=== PATIENT | male | born 2000 | race Hispanic/Latino ===

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

== ENCOUNTER 2019-03-25 21:52 | Emergency (ER) | payer MEDICAID, OTHER | END 2019-03-25 23:07 | disposition home or self-care (01) | LOC: EDH 21:52 | DX: H66.91 Otitis media, unspecified, right ear (principal); Z91.018 Allergy to other foods ==

== ENCOUNTER 2019-04-19 09:56 | Emergency (ER) | payer OTHER ==
[2019-04-19 10:36] LABS: POTASSIUM 3.9 mmol/L (3.5-5.1)
[2019-04-19 10:42] LABS: ALBUMIN 4.2 g/dL (3.5-5.0); BILIRUBIN,TOTAL 0.4 mg/dL (0.2-1.0); TOTAL PROTEIN, SERUM 7.9 g/dL (6.0-8.3)
[2019-04-19 10:55] LABS: BASOPHILS % (AUTO) 1.3 % (0.0-5.0); EOSINOPHILS % (AUTO) 5.4 % (0.0-8.0); HEMATOCRIT 48.5 % (42-54); LYMPHOCYTES % (AUTO) 43.9 % (21.0-51.0); MEAN CORPUSCULAR HEMOGLOBIN 29.6 pg (27.0-33.0); MEAN CORPUSCULAR HGB CONC 34.3 g/dL (32.0-36.0); MEAN CORPUSCULAR VOLUME 86.2 fL (80-100); MONOCYTES % (AUTO) 8.5 % (3.0-13.0); NEUTROPHILS % (AUTO) 40.9 % (40.0-77.0); NUCLEATED RED BLOOD CELLS 0.1 % (0.0-0.19); PLATELET COUNT (AUTO) 186 K/uL (130-400); RED BLOOD CELL COUNT(AUTO) 5.63 MIL/uL (4.50-6.20); RED CELL DISTRIBUTION WIDTH 15.2 % (11.0-15.5); WHITE BLOOD COUNT (AUTO) 3.8 K/uL (4.8-10.8)
[2019-04-19] MEDS ORDERED: ONDANSETRON ODT 4 MG TAB ONE (11:00)
== END 2019-04-19 11:35 | disposition home or self-care (01) ==
LOC: EDH 09:56
DX: A09 Infectious gastroenteritis and colitis, unspecified (principal); M79.10 Myalgia, unspecified site; H92.02 Otalgia, left ear; F41.9 Anxiety disorder, unspecified; Z91.018 Allergy to other foods
CPT/HCPCS: 36415; 80053; 85025; 87804; 87880

== ENCOUNTER 2019-07-21 00:58 | Emergency (ER) | payer MEDICAID ==
[2019-07-21] MEDS ORDERED: DiphenhydrAMINE HCL 50 MG/ML VIAL ONE (01:05)
[2019-07-21] MEDS ORDERED: FAMOTIDINE/PF 20 MG/2 ML VIAL IV ONE (01:05)
[2019-07-21] MEDS ORDERED: METHYLPREDNISOLONE SOD SUCC 125MG/2ML VIAL ONE (01:10)
[2019-07-21 01:33] LABS: BASOPHILS % (AUTO) 0.6 % (0.0-5.0); EOSINOPHILS % (AUTO) 3.9 % (0.0-8.0); LYMPHOCYTES % (AUTO) 43.3 % (21.0-51.0); MEAN CORPUSCULAR HEMOGLOBIN 29.1 pg (27.0-33.0); MEAN CORPUSCULAR HGB CONC 34.6 g/dL (32.0-36.0); MEAN CORPUSCULAR VOLUME 84.1 fL (80-100); MONOCYTES % (AUTO) 8.3 % (3.0-13.0); NEUTROPHILS % (AUTO) 43.5 % (40.0-77.0); PLATELET COUNT (AUTO) 180 K/uL (130-400); RED BLOOD CELL COUNT(AUTO) 4.16 MIL/uL (4.50-6.20); RED CELL DISTRIBUTION WIDTH 13.9 % (11.0-15.5); WHITE BLOOD COUNT (AUTO) 5.4 K/uL (4.8-10.8)
[2019-07-21 01:43] LABS: CREATININE 0.6 mg/dL (0.5-1.5)
[2019-07-21 01:50] LABS: POTASSIUM 2.6 mmol/L (3.5-5.1)
[2019-07-21] MEDS ORDERED: POTASSIUM BICARB/CIT AC 25 MEQ TABLET.EFF ONE (01:54)
[2019-07-21] MEDS ORDERED: MAGNESIUM 2GM PREMIX 50ML 50 ML IV ONE (02:20)
== END 2019-07-21 03:35 | disposition home or self-care (01) ==
LOC: EDH 00:58
DX: T78.49XA Other allergy, initial encounter (principal); E87.6 Hypokalemia; E83.42 Hypomagnesemia; Z91.018 Allergy to other foods; F41.9 Anxiety disorder, unspecified; X58.XXXA Exposure to other specified factors, initial encounter
CPT/HCPCS: 36415; 80048; 83735; 85025; 93005; 96365; 96375; 99285; J1200; J2930; J3475; J3490

== ENCOUNTER 2020-10-01 17:21 | Emergency (ER) | payer MEDICAID ==
[2020-10-01] MEDS ORDERED: MORPHINE SULFATE 2 MG/ML 1ML SYG ONE (18:24)
[2020-10-01] MEDS ORDERED: ONDANSETRON HCL 4 MG/2 ML VIAL ONE (18:24)
[2020-10-01 18:26] LABS: APPEARANCE,URINE Clear (CLEAR); BILIRUBIN,URINE Negative (NEGATIVE); COLOR,URINE Yellow (YELLOW); GLUCOSE, URINE (UA) Negative (NEGATIVE); KETONES,URINE Negative (NEGATIVE); LEUKOCYTE ESTERASE ,URINE Negative (NEGATIVE); NITRATE,URINE Negative (NEGATIVE); OCCULT BLOOD,URINE Negative (NEGATIVE); PROTEIN,URINE Negative (NEGATIVE); UROBILINOGEN,URINE 0.2 mg/dL (0.2-1.0)
[2020-10-01 18:30] LABS: BASOPHILS % (AUTO) 0.7 % (0.0-5.0); EOSINOPHILS % (AUTO) 1.3 % (0.0-8.0); HEMATOCRIT 47.5 % (42-54); LYMPHOCYTES % (AUTO) 29.6 % (21.0-51.0); MEAN CORPUSCULAR HEMOGLOBIN 29.4 pg (27.0-33.0); MEAN CORPUSCULAR HGB CONC 35.2 g/dL (32.0-36.0); MEAN CORPUSCULAR VOLUME 83.6 fL (80-100); MONOCYTES % (AUTO) 8.6 % (3.0-13.0); NEUTROPHILS % (AUTO) 59.6 % (40.0-77.0); PLATELET COUNT (AUTO) 215 K/uL (130-400); RED BLOOD CELL COUNT(AUTO) 5.68 MIL/uL (4.50-6.20); RED CELL DISTRIBUTION WIDTH 14.1 % (11.0-15.5); WHITE BLOOD COUNT (AUTO) 5.4 K/uL (4.8-10.8)
[2020-10-01 18:40] LABS: CARBON DIOXIDE 28 mmol/L (21-32); CHLORIDE 101 mmol/L (101-111); GLOMERULAR FILTR. RATE CALC 101 mL/min (>60); GLUCOSE,RANDOM 97 mg/dL (70-105); POTASSIUM 3.8 mmol/L (3.5-5.1); SODIUM SERUM 137 mmol/L (136-145); UREA NITROGEN, BLOOD 9 mg/dL (7-18)
[2020-10-01 18:44] LABS: ALANINE AMINOTRANSFERASE 36 U/L (12-78); ALBUMIN 4.5 g/dL (3.5-5.0); ASPARTATE AMINOTRANSFERASE 18 U/L (10-37); BILIRUBIN,TOTAL 0.3 mg/dL (0.2-1.0); LIPASE 101 U/L (114-286)
[2020-10-01] MEDS ORDERED: IOHEXOL-350 75 ML VIAL IV ONE (18:54)
[2020-10-01 19:02] LABS: CRP QUANTITATIVE < 2.00 mg/L (0.00-9.0)
[2020-10-01] MEDS ORDERED: LEVOFLOXACIN 500 MG TABLET ONE (20:51)
[2020-10-01] MEDS ORDERED: METRONIDAZOLE 500 MG TABLET ONE (20:51)
== END 2020-10-01 21:02 | disposition home or self-care (01) ==
LOC: EDH 17:21
DX: K52.9 Noninfective gastroenteritis and colitis, unspecified (principal); F41.9 Anxiety disorder, unspecified; Z91.018 Allergy to other foods
CPT/HCPCS: 36415; 74177; 80053; 81003; 83605; 83690; 85025; 86140; 96374; 96375; 99285; J2405; Q9967

== ENCOUNTER 2021-06-09 23:09 | Emergency (ER) | payer MEDICAID ==
[~2021-06-09] VITALS: Ht 162.6 cm; Wt 74.4 kg
[2021-06-10] MEDS ORDERED: PANT40TA PO (00:22)
[2021-06-10] MEDS ORDERED: ONDA4TAB10 PO (00:22)
[2021-06-10] MEDS ORDERED: METO-296 PO (00:22)
[2021-06-10 00:26] VITALS: BP 139/85
[2021-06-10] MEDS ORDERED: FAMOTIDINE 20MG TAB PO ONE (00:30)
[2021-06-10] MEDS ORDERED: ONDANSETRON ODT 4MG TAB SL ONE (00:30)
[2021-06-10] MEDS ORDERED: PROMETHAZINE HCL 25 MG/ML 1ML AMPULE IM ONE (00:30)
[2021-06-10] MEDS ORDERED: PANTOPRAZOLE 40 MG TAB DR PO ONE (00:30)
[2021-06-10] MEDS ORDERED: FAMOTIDINE 20MG TAB ONE (00:39)
[2021-06-10] MEDS ORDERED: PANTOPRAZOLE 40 MG TAB DR ONE (00:40)
[2021-06-10] MEDS ORDERED: ONDANSETRON ODT 4MG TAB ONE (00:40)
== END 2021-06-10 00:53 | disposition home or self-care (01) ==
LOC: EEVIPCON 23:09 → EDH 23:09
DX: A05.9 Bacterial foodborne intoxication, unspecified (principal); R10.13 Epigastric pain; R11.2 Nausea with vomiting, unspecified; Z79.899 Other long term (current) drug therapy; Z91.018 Allergy to other foods
CPT/HCPCS: 96372; 99284; J2550

== ENCOUNTER 2022-03-22 20:48 | Emergency (ER) | payer MEDICAID ==
[~2022-03-22] VITALS: Ht 162.6 cm; Wt 69.9 kg
[~2022-03-22 20:48] MED LIST: METO-296 PO; ONDA4TAB10 PO; PANT40TA PO
[2022-03-22] MEDS ORDERED: IBUP-2070 PO (22:10)
[2022-03-22] MEDS ORDERED: GUAIF10 PO (22:10)
[2022-03-22 22:34] VITALS: BP 122/68
== END 2022-03-22 22:40 | disposition home or self-care (01) ==
LOC: EDH 20:48
DX: J10.1 Influenza due to other identified influenza virus with other respiratory manifestations (principal); Z20.822 Contact with and (suspected) exposure to COVID-19; Z91.018 Allergy to other foods; Z79.899 Other long term (current) drug therapy
CPT/HCPCS: 99283; 87635; 87880; 87804 ×2; C9803

== ENCOUNTER 2022-12-11 12:33 | Emergency (ER) | payer MEDICAID, OTHER ==
[~2022-12-11] VITALS: Ht 157.5 cm; Wt 63.5 kg
[~2022-12-11 12:33] MED LIST changes: +GUAIF10 PO; +IBUP-2070 PO
[2022-12-11 14:12] LABS: CARBON DIOXIDE 25 mmol/L (21-32); CHLORIDE 103 mmol/L (101-111); CREATININE 0.9 mg/dL (0.5-1.5); GLOMERULAR FILTR. RATE CALC 123 mL/min (>90); GLUCOSE,RANDOM 101 mg/dL (70-105); POTASSIUM 3.6 mmol/L (3.5-5.1); SODIUM SERUM 141 mmol/L (136-145); UREA NITROGEN, BLOOD 10 mg/dL (7-18)
[2022-12-11 14:20] LABS: ALANINE AMINOTRANSFERASE 42 U/L (12-78); ALBUMIN 4.6 g/dL (3.5-5.0); ASPARTATE AMINOTRANSFERASE 26 U/L (10-37); TOTAL PROTEIN, SERUM 8.5 g/dL (6.0-8.3)
[2022-12-11 14:28] LABS: ACETAMINOPHEN < 10 mcg/mL (10-29); SALICYLATE < 2.8 mg/dL (2.8-20.0)
[2022-12-11 15:15] LABS: BASOPHILS % (AUTO) 0.7 % (0.0-5.0); EOSINOPHILS % (AUTO) 0.5 % (0.0-8.0); HEMATOCRIT 46.7 % (42-54); LYMPHOCYTES % (AUTO) 37.6 % (21.0-51.0); MEAN CORPUSCULAR HEMOGLOBIN 29.6 pg (27.0-33.0); MEAN CORPUSCULAR HGB CONC 34.3 g/dL (32.0-36.0); MEAN CORPUSCULAR VOLUME 86.3 fL (79-99); MONOCYTES % (AUTO) 7.4 % (3.0-13.0); NEUTROPHILS % (AUTO) 53.6 % (40.0-77.0); PLATELET COUNT (AUTO) 299 K/uL (130-400); RED BLOOD CELL COUNT(AUTO) 5.41 MIL/uL (4.50-6.20); RED CELL DISTRIBUTION WIDTH 13.8 % (11.0-15.5); WHITE BLOOD COUNT (AUTO) 5.7 K/uL (4.8-10.8)
[2022-12-11 15:53] LABS: APPEARANCE,URINE CLEAR (CLEAR); BILIRUBIN,URINE NEGATIVE (NEGATIVE); COLOR,URINE YELLOW (YELLOW); GLUCOSE, URINE (UA) NEGATIVE (NEGATIVE); KETONES,URINE NEGATIVE (NEGATIVE); LEUKOCYTE ESTERASE ,URINE NEGATIVE Leu/uL (NEGATIVE); NITRATE,URINE NEGATIVE (NEGATIVE); OCCULT BLOOD,URINE SMALL (NEGATIVE); PH,URINE 5.5 (5.0-8.0); PROTEIN,URINE 10 mg/dL (NEGATIVE); UROBILINOGEN,URINE 0.2 mg/dL (0.2-1.0)
[2022-12-11 15:54] LABS: MUCUS,URINE FEW LPF (None Seen); RBC,URINE 0-1 /HPF (0-1); WBC,URINE 0-1 /HPF (0-1)
[2022-12-11 16:02] LABS: AMPHET/METH SCREEN,URINE NEGATIVE (NEGATIVE); BARBITURATE SCREEN, URINE NEGATIVE (NEGATIVE); BENZODIAZEPINES SCREEN,URINE NEGATIVE (NEGATIVE); CANNABINOID SCREEN,URINE NEGATIVE (NEGATIVE); COCAINE SCREEN,URINE POSITIVE (NEGATIVE); OPIATE SCREEN,URINE NEGATIVE (NEGATIVE); PHENCYCLIDINE SCREEN,URINE NEGATIVE (NEGATIVE)
[2022-12-11 19:58] VITALS: BP 126/72
== END 2022-12-11 20:33 | disposition home or self-care (01) ==
LOC: EDH 12:33 → EEVIPCON 12:33 → EDH 20:33
DX: F10.10 Alcohol abuse, uncomplicated (principal); F14.10 Cocaine abuse, uncomplicated; F41.9 Anxiety disorder, unspecified; Z20.822 Contact with and (suspected) exposure to COVID-19; Z79.899 Other long term (current) drug therapy; Z91.018 Allergy to other foods
CPT/HCPCS: 99285; 87635; 80053; 80305; 85025; 36415; 81001; G0481; C9803

== ENCOUNTER 2023-02-12 05:59 | Emergency (ER) | payer OTHER ==
[2023-02-12] MEDS ORDERED: HYDROXYZINE 25 MG TABLET ONE (06:25)
== END 2023-02-12 07:17 | disposition home or self-care (01) ==
LOC: EDH 05:59
DX: R68.89 Other general symptoms and signs (principal); Z53.21 Procedure and treatment not carried out due to patient leaving prior to being seen by health care provider

== ENCOUNTER 2023-03-19 15:38 | Emergency (ER) | payer OTHER ==
[~2023-03-19] VITALS: Ht 162.6 cm; Wt 63.5 kg
[2023-03-19 16:29] LABS: BASOPHILS # (AUTO) 0.03 K/uL (0.00-0.20); BASOPHILS % (AUTO) 0.6 % (0.0-5.0); EOSINOPHILS # (AUTO) 0.01 K/uL (0.00-0.70); EOSINOPHILS % (AUTO) 0.2 % (0.0-8.0); HEMATOCRIT 46.7 % (42-54); IMMATURE GRANULOCYTE ABSOLUTE 0.01 K/uL (0-1); LYMPHOCYTES # (AUTO) 1.8 K/uL (1.0-4.8); LYMPHOCYTES % (AUTO) 37.7 % (21.0-51.0); MEAN CORPUSCULAR HEMOGLOBIN 30.2 pg (27.0-33.0); MEAN CORPUSCULAR HGB CONC 35.3 g/dL (32.0-36.0); MEAN CORPUSCULAR VOLUME 85.4 fL (79-99); MONOCYTES # (AUTO) 0.3 K/uL (0.1-1.0); NEUTROPHILS # (AUTO) 2.6 K/uL (1.8-7.7); NEUTROPHILS % (AUTO) 55.3 % (40.0-77.0); PLATELET COUNT (AUTO) 240 K/uL (130-400); RED BLOOD CELL COUNT(AUTO) 5.47 MIL/uL (4.50-6.20); RED CELL DISTRIBUTION WIDTH 13.4 % (11.0-15.5); WHITE BLOOD COUNT (AUTO) 4.7 K/uL (4.8-10.8)
[2023-03-19 16:35] LABS: APPEARANCE,URINE CLEAR (CLEAR); BILIRUBIN,URINE NEGATIVE (NEGATIVE); GLUCOSE, URINE (UA) NEGATIVE (NEGATIVE); KETONES,URINE NEGATIVE (NEGATIVE); LEUKOCYTE ESTERASE ,URINE NEGATIVE Leu/uL (NEGATIVE); NITRATE,URINE NEGATIVE (NEGATIVE); PH,URINE 5.5 (5.0-8.0); PROTEIN,URINE NEGATIVE (NEGATIVE); UROBILINOGEN,URINE 0.2 mg/dL (0.2-1.0)
[2023-03-19 16:36] LABS: ADD UA MICROSCOPIC YES; COLOR,URINE LIGHT-YELLOW (YELLOW)
[2023-03-19 16:38] LABS: CARBON DIOXIDE 26 mmol/L (21-32); CHLORIDE 101 mmol/L (101-111); GLOMERULAR FILTR. RATE CALC 108 mL/min (>90); GLUCOSE,RANDOM 106 mg/dL (70-105); MUCUS,URINE RARE LPF (None Seen); POTASSIUM 3.2 mmol/L (3.5-5.1); RBC,URINE 0-1 /HPF (0-1); SODIUM SERUM 140 mmol/L (136-145); UREA NITROGEN, BLOOD 5 mg/dL (7-18); WBC,URINE 0-1 /HPF (0-1)
[2023-03-19 16:42] LABS: AMPHET/METH SCREEN,URINE NEGATIVE (NEGATIVE); BARBITURATE SCREEN, URINE NEGATIVE (NEGATIVE); BENZODIAZEPINES SCREEN,URINE NEGATIVE (NEGATIVE); CANNABINOID SCREEN,URINE NEGATIVE (NEGATIVE); COCAINE SCREEN,URINE POSITIVE (NEGATIVE); OPIATE SCREEN,URINE NEGATIVE (NEGATIVE); PHENCYCLIDINE SCREEN,URINE NEGATIVE (NEGATIVE); SARS-CoV-2, RNA, NAAT NEGATIVE SARS CoV-2 (NEGATIVE)
[2023-03-19 16:47] LABS: ALANINE AMINOTRANSFERASE 39 U/L (12-78); ALBUMIN 4.7 g/dL (3.5-5.0); ALCOHOL, BLOOD 242 mg/dL (0-10); ASPARTATE AMINOTRANSFERASE 28 U/L (10-37); BILIRUBIN,TOTAL 0.4 mg/dL (0.2-1.0); SALICYLATE < 2.8 mg/dL (2.8-20.0); TOTAL PROTEIN, SERUM 8.5 g/dL (6.0-8.3)
[2023-03-19 16:48] LABS: ACETAMINOPHEN < 1 mcg/mL (10-29)
[2023-03-19] MEDS ORDERED: DiphenhydrAMINE HCL 50 MG/ML VIAL IM ONE (22:30)
[2023-03-19] MEDS ORDERED: EPINEPHRINE PF 1MG (1:1,000) 1 MG/ML AMP IM ONE (22:30)
[2023-03-19] MEDS ORDERED: SOLU-MEDROL 125MG VIAL IM ONE (22:30)
[2023-03-20 05:35] VITALS: BP 126/78; PULSE 102; RESP 16; O2SAT 99
== END 2023-03-20 08:05 ==
LOC: EDH 15:38
DX: R45.851 Suicidal ideations (principal); F32.A Depression, unspecified; E10.9 Type 1 diabetes mellitus without complications; Z20.822 Contact with and (suspected) exposure to COVID-19; Z79.899 Other long term (current) drug therapy; Z98.890 Other specified postprocedural states; Z91.018 Allergy to other foods
CPT/HCPCS: 99285; 87635; 80053; 80305; 85025; 36415 ×2; 96372 ×3; 93005; 81001; C9803; J1200; J2930; J0171; G0481

== ENCOUNTER 2023-04-28 12:20 | Emergency (ER) | payer OTHER ==
[~2023-04-28] VITALS: Ht 162.6 cm; Wt 68.0 kg
[2023-04-28 12:24] VITALS: BP 130/66; PULSE 93; RESP 18
[2023-04-28] MEDS ORDERED: KETOROLAC 30MG VIAL (30MG/ML) IM ONE (13:00)
[2023-04-28] MEDS ORDERED: FAMOTIDINE 20MG TAB PO ONE (13:00)
[2023-04-28] MEDS ORDERED: NAPR-1180 PO (13:06)
[2023-04-28] MEDS ORDERED: CYCL-309 PO (13:06)
== END 2023-04-28 13:27 | disposition home or self-care (01) ==
LOC: EDH 12:20
DX: M62.838 Other muscle spasm (principal); E10.9 Type 1 diabetes mellitus without complications; F32.A Depression, unspecified; Z79.899 Other long term (current) drug therapy; Z98.890 Other specified postprocedural states; Z04.1 Encounter for examination and observation following transport accident
CPT/HCPCS: 99283; 96372; J1885

== ENCOUNTER 2023-06-06 19:48 | Inpatient (IN) | payer OTHER ==
[~2023-06-06] VITALS: Ht 162.6 cm; Wt 69.3 kg
[~2023-06-06 19:48] MED LIST changes: +CYCL-309 PO; +NAPR-1180 PO
[2023-06-07] VITALS (27 sets, daily range): BP systolic 94–130; BP diastolic 49–85; PULSE 64–96; RESP 15–20; O2SAT 98–99
[2023-06-07] MEDS ORDERED: ZOSYN 3.375GM+NS 50ML 50 ML IVPB STA (00:19)
[2023-06-07] MEDS ORDERED: 0.9%NACL 1000ML 1,776 ML IV ONE (00:30)
[2023-06-07] MEDS ORDERED: HYDROCODONE/ACETAMINOPHEN 5/325 MG TAB PO ONE (00:30)
[2023-06-07] MEDS ORDERED: KETOROLAC 30MG VIAL (30MG/ML) IVP ONE (00:30)
[2023-06-07] MEDS ORDERED: VANCOMYCIN 1G/250ML KIT 250 ML IV ONE (00:30)
[2023-06-07 01:10] LABS: BASOPHILS # (AUTO) 0.04 K/uL (0.00-0.20); BASOPHILS % (AUTO) 0.3 % (0.0-5.0); EOSINOPHILS # (AUTO) 0.03 K/uL (0.00-0.70); EOSINOPHILS % (AUTO) 0.2 % (0.0-8.0); IMMATURE GRANULOCYTE ABSOLUTE 0.07 K/uL (0-1); LYMPHOCYTES # (AUTO) 1.6 K/uL (1.0-4.8); LYMPHOCYTES % (AUTO) 11.7 % (21.0-51.0); MEAN CORPUSCULAR HEMOGLOBIN 30.2 pg (27.0-33.0); MEAN CORPUSCULAR VOLUME 86.4 fL (79-99); MONOCYTES # (AUTO) 1.2 K/uL (0.1-1.0); MONOCYTES % (AUTO) 8.7 % (3.0-13.0); NEUTROPHILS # (AUTO) 10.5 K/uL (1.8-7.7); NEUTROPHILS % (AUTO) 78.6 % (40.0-77.0); PLATELET COUNT (AUTO) 270 K/uL (130-400); RED BLOOD CELL COUNT(AUTO) 4.86 MIL/uL (4.50-6.20); RED CELL DISTRIBUTION WIDTH 13.5 % (11.0-15.5); WHITE BLOOD COUNT (AUTO) 13.4 K/uL (4.8-10.8)
[2023-06-07 01:24] LABS: CREATININE 1.1 mg/dL (0.5-1.5); POTASSIUM 3.1 mmol/L (3.5-5.1)
[2023-06-07 01:29] LABS: ALBUMIN 3.8 g/dL (3.5-5.0); BILIRUBIN,TOTAL 0.7 mg/dL (0.2-1.0); TOTAL PROTEIN, SERUM 8.2 g/dL (6.0-8.3)
[2023-06-07] MEDS ORDERED: ONDANSETRON 4MG INJ ONE ×4 (01:40→15:44)
[2023-06-07] MEDS ORDERED: ONDANSETRON 4MG INJ IV PRN (03:30)
[2023-06-07] MEDS ORDERED: ACETAMINOPHEN 325 MG TAB PO PRN ×2 (03:30)
[2023-06-07] MEDS ORDERED: VANCOMYCIN PROTOCOL PER PHARMACY IV SCH (04:00)
[2023-06-07] MEDS ORDERED: 0.9%NACL 50ML IV SCH (04:00)
[2023-06-07 04:49] LABS: BASOPHILS # (AUTO) 0.04 K/uL (0.00-0.20); BASOPHILS % (AUTO) 0.4 % (0.0-5.0); EOSINOPHILS # (AUTO) 0.15 K/uL (0.00-0.70); EOSINOPHILS % (AUTO) 1.4 % (0.0-8.0); HEMATOCRIT 38.7 % (42-54); IMMATURE GRANULOCYTE ABSOLUTE 0.07 K/uL (0-1); LYMPHOCYTES % (AUTO) 19.5 % (21.0-51.0); MEAN CORPUSCULAR HEMOGLOBIN 29.7 pg (27.0-33.0); MEAN CORPUSCULAR HGB CONC 33.9 g/dL (32.0-36.0); MEAN CORPUSCULAR VOLUME 87.8 fL (79-99); MONOCYTES % (AUTO) 9.8 % (3.0-13.0); NEUTROPHILS # (AUTO) 7.1 K/uL (1.8-7.7); NEUTROPHILS % (AUTO) 68.2 % (40.0-77.0); PLATELET COUNT (AUTO) 221 K/uL (130-400); RED BLOOD CELL COUNT(AUTO) 4.41 MIL/uL (4.50-6.20); RED CELL DISTRIBUTION WIDTH 13.6 % (11.0-15.5); WHITE BLOOD COUNT (AUTO) 10.4 K/uL (4.8-10.8)
[2023-06-07 05:14] LABS: ALBUMIN 3.1 g/dL (3.5-5.0); BILIRUBIN,TOTAL 0.7 mg/dL (0.2-1.0); MAGNESIUM 1.8 mg/dL (1.80-2.40); POTASSIUM 3.2 mmol/L (3.5-5.1); TOTAL PROTEIN, SERUM 6.6 g/dL (6.0-8.3)
[2023-06-07] MEDS: 0.9%NACL 1000ML 1,000 ML IV SCH ×2 (05:34→17:20)
[2023-06-07] MEDS: ZOSYN 3.375GM +NS 50ML IVPB SCH ×3 (05:34→19:46)
[2023-06-07 06:01] LABS: ERYTHROCYTE SEDIMENTATION RATE 18 MM/HR (0-15)
[2023-06-07] MEDS: FAMOTIDINE 20MG TAB PO SCH ×2 (09:00→19:46)
[2023-06-07] MEDS: KETOROLAC 15MG/ML VIAL (15MG/ML) IM PRN ×2 (10:16→21:42)
[2023-06-07] MEDS ORDERED: POTASSIUM CHLORIDE 20MEQ/100ML 100 ML IV PRN (11:00)
[2023-06-07] MEDS ORDERED: MAGNESIUM 2GM PREMIX 50ML 50 ML IV PRN (11:00)
[2023-06-07] MEDS ORDERED: POTASSIUM CHLORIDE 10% ELIXIR 20 MEQ/15 ML UDCUP PO PRN (11:00)
[2023-06-07] MEDS ORDERED: LACTATED RINGERS 1000ML 1,000 ML IV ONE (13:50)
[2023-06-07] MEDS ORDERED: VANCOMYCIN 1.5 GM/250 ML BAG 250 ML IV ONE (14:00)
[2023-06-07] MEDS ORDERED: FAMOTIDINE 20MG VIAL IV ONE (14:14)
[2023-06-07] MEDS ORDERED: LIDOCAINE PF 100MG/5ML (2%) SYRINGE 5ML ONE (14:16)
[2023-06-07] MEDS ORDERED: PROPOFOL 10 MG/ML 20ML VIAL IV ONE (14:17)
[2023-06-07] MEDS ORDERED: FENTANYL CITRATE PF 50 MCG/1 ML 2ML VIAL ONE (14:17)
[2023-06-07] MEDS ORDERED: MIDAZOLAM HCL 1 MG/ML 2ML VIAL ONE (14:17)
[2023-06-07] MEDS ORDERED: PHENYLEPHRINE HCL 10 MG/ML 1ML VIAL IV ONE (14:37)
[2023-06-07] MEDS ORDERED: MEPERIDINE-PF 25 MG/ML SYG ONE ×2 (15:08→15:44)
[2023-06-07] MEDS: KCL 20 MEQ ERTAB PO PRN ×3 (16:48→21:41)
[2023-06-07] MEDS: MORPHINE 2 MG SYG IVP PRN (18:41)
[2023-06-08] VITALS (8 sets, daily range): BP systolic 107–138; BP diastolic 58–84; PULSE 72–97; RESP 16–18; TEMP 99.5; O2SAT 97–98
[2023-06-08] MEDS ORDERED: VANCOMYCIN 1G/250ML KIT 250 ML IV SCH (02:00)
[2023-06-08] MEDS: ZOSYN 3.375GM +NS 50ML IVPB SCH ×3 (03:55→20:12)
[2023-06-08 04:55] LABS: BASOPHILS # (AUTO) 0.03 K/uL (0.00-0.20); BASOPHILS % (AUTO) 0.3 % (0.0-5.0); EOSINOPHILS # (AUTO) 0.18 K/uL (0.00-0.70); EOSINOPHILS % (AUTO) 1.8 % (0.0-8.0); HEMATOCRIT 35.9 % (42-54); IMMATURE GRANULOCYTE ABSOLUTE 0.04 K/uL (0-1); LYMPHOCYTES # (AUTO) 1.1 K/uL (1.0-4.8); LYMPHOCYTES % (AUTO) 11.2 % (21.0-51.0); MEAN CORPUSCULAR HEMOGLOBIN 29.9 pg (27.0-33.0); MEAN CORPUSCULAR HGB CONC 34.5 g/dL (32.0-36.0); MEAN CORPUSCULAR VOLUME 86.5 fL (79-99); MONOCYTES # (AUTO) 0.7 K/uL (0.1-1.0); MONOCYTES % (AUTO) 6.8 % (3.0-13.0); NEUTROPHILS # (AUTO) 7.8 K/uL (1.8-7.7); NEUTROPHILS % (AUTO) 79.5 % (40.0-77.0); PLATELET COUNT (AUTO) 231 K/uL (130-400); RED BLOOD CELL COUNT(AUTO) 4.15 MIL/uL (4.50-6.20); RED CELL DISTRIBUTION WIDTH 13.9 % (11.0-15.5); WHITE BLOOD COUNT (AUTO) 9.8 K/uL (4.8-10.8)
[2023-06-08 05:10] LABS: ALBUMIN 2.8 g/dL (3.5-5.0); BILIRUBIN,TOTAL 0.4 mg/dL (0.2-1.0); MAGNESIUM 1.9 mg/dL (1.80-2.40); POTASSIUM 3.7 mmol/L (3.5-5.1); TOTAL PROTEIN, SERUM 6.5 g/dL (6.0-8.3)
[2023-06-08] MEDS: KCL 20 MEQ ERTAB PO PRN (05:22)
[2023-06-08 05:58] LABS: ERYTHROCYTE SEDIMENTATION RATE 30 MM/HR (0-15)
[2023-06-08] MEDS: 0.9%NACL 1000ML 1,000 ML IV SCH ×2 (06:04→20:13)
[2023-06-08] MEDS: FAMOTIDINE 20MG TAB PO SCH ×2 (08:42→20:12)
[2023-06-08] MEDS: KETOROLAC 15MG/ML VIAL (15MG/ML) IM PRN ×2 (09:36→19:53)
[2023-06-08] MEDS ORDERED: LACTULOSE 20 GM/30 ML UDCUP ONE (10:26)
[2023-06-08] MEDS ORDERED: LACTULOSE 20 GM/30 ML UDCUP PO PRN (10:30)
[2023-06-08] MEDS ORDERED: ACETAMINOPHEN 500 MG TABLET PO PRN (12:30)
[2023-06-08] MEDS: MORPHINE 2 MG SYG IVP PRN (14:45)
[2023-06-08] MEDS: VANCOMYCIN 1G/250ML KIT 250 ML IV SCH ×2 (15:57→23:19)
[2023-06-09] VITALS: BP 105/84; PULSE 77; RESP 18
[2023-06-09] MEDS: ZOSYN 3.375GM +NS 50ML IVPB SCH ×2 (03:45→12:41)
[2023-06-09 04:00] VITALS: BP 116/67; PULSE 68; RESP 18
[2023-06-09 04:10] LABS: BASOPHILS # (AUTO) 0.04 K/uL (0.00-0.20); BASOPHILS % (AUTO) 0.5 % (0.0-5.0); EOSINOPHILS # (AUTO) 0.29 K/uL (0.00-0.70); EOSINOPHILS % (AUTO) 3.7 % (0.0-8.0); HEMATOCRIT 38.7 % (42-54); IMMATURE GRANULOCYTE ABSOLUTE 0.02 K/uL (0-1); LYMPHOCYTES # (AUTO) 1.9 K/uL (1.0-4.8); LYMPHOCYTES % (AUTO) 24.4 % (21.0-51.0); MEAN CORPUSCULAR HEMOGLOBIN 29.5 pg (27.0-33.0); MEAN CORPUSCULAR HGB CONC 33.1 g/dL (32.0-36.0); MEAN CORPUSCULAR VOLUME 89.2 fL (79-99); MONOCYTES # (AUTO) 0.7 K/uL (0.1-1.0); MONOCYTES % (AUTO) 8.6 % (3.0-13.0); NEUTROPHILS % (AUTO) 62.5 % (40.0-77.0); PLATELET COUNT (AUTO) 234 K/uL (130-400); RED BLOOD CELL COUNT(AUTO) 4.34 MIL/uL (4.50-6.20); RED CELL DISTRIBUTION WIDTH 13.8 % (11.0-15.5); WHITE BLOOD COUNT (AUTO) 7.9 K/uL (4.8-10.8)
[2023-06-09 04:24] LABS: ALBUMIN 2.7 g/dL (3.5-5.0); BILIRUBIN,TOTAL 0.3 mg/dL (0.2-1.0); POTASSIUM 3.7 mmol/L (3.5-5.1); TOTAL PROTEIN, SERUM 6.8 g/dL (6.0-8.3)
[2023-06-09] MEDS: VANCOMYCIN 1G/250ML KIT 250 ML IV SCH (06:28)
[2023-06-09 07:56] VITALS: BP 114/61; PULSE 67; RESP 14
[2023-06-09 08:00] VITALS: O2SAT 97
[2023-06-09] MEDS: FAMOTIDINE 20MG TAB PO SCH (08:18)
[2023-06-09] MEDS: 0.9%NACL 1000ML 1,000 ML IV SCH (08:18)
[2023-06-09 11:47] VITALS: BP 160/94; PULSE 69; RESP 16
[2023-06-09] MEDS: MORPHINE 2 MG SYG IVP PRN (12:59)
[2023-06-09] MEDS ORDERED: AMOX500T2 PO (14:12)
== END 2023-06-09 15:35 | disposition home or self-care (01) | DRG 580 ==
LOC: EDH 19:48 → EDHIP 19:49 → 4CH 06-07 04:00
PROVIDERS: ADMIT Hospitalist; ATTEND Hospitalist
PROC: 0JBJ0ZZ Excision of Right Hand Subcutaneous Tissue and Fascia, Open Approach (ICD-10-PCS; principal; 2023-06-07 14:16)
DX: L03.113 Cellulitis of right upper limb (principal); E87.1 Hypo-osmolality and hyponatremia; L02.511 Cutaneous abscess of right hand; E87.6 Hypokalemia; F43.10 Post-traumatic stress disorder, unspecified; S60.511A Abrasion of right hand, initial encounter; S61.411A Laceration without foreign body of right hand, initial encounter; W01.0XXA Fall on same level from slipping, tripping and stumbling without subsequent striking against object, initial encounter; Y93.89 Activity, other specified; Y92.89 Other specified places as the place of occurrence of the external cause; Y99.0 Civilian activity done for income or pay; Z91.018 Allergy to other foods
CPT/HCPCS: 36415; 73130; 80053; 80202; 82948; 83605; 83735; 84145; 85025; 85651; 86140; 87040; 87070; 87076; 87205; A6266; G0378; J1885; J2001; J2175; J2250; J2270; J2371; J2405; J2543; J2704; J3010; J3370; J3475; J3490; J7120; A4216; A4222; A4223; A4649; A6223; G8980-CH; G8983-CH

== ENCOUNTER 2023-08-28 10:07 | Emergency (ER) | payer OTHER ==
[~2023-08-28 10:07] MED LIST changes: +AMOX500T2 PO; -CYCL-309 PO; -GUAIF10 PO; -IBUP-2070 PO; -METO-296 PO; -NAPR-1180 PO; -ONDA4TAB10 PO; -PANT40TA PO
[2023-08-28] MEDS ORDERED: KETOROLAC 60 MG VIAL (30MG/ML) IM ONE (11:00)
== END 2023-08-28 11:33 | disposition left against medical advice (07) ==
LOC: EDH 10:07
DX: R07.89 Other chest pain (principal); Z98.890 Other specified postprocedural states; Z88.8 Allergy status to other drugs, medicaments and biological substances
CPT/HCPCS: 71101

== ENCOUNTER 2024-03-25 07:57 | Emergency (ER) | payer SELFPAY ==
[~2024-03-25] VITALS: Ht 162.6 cm; Wt 68.0 kg
[2024-03-25 07:58] VITALS: BP 140/85; PULSE 111; RESP 22; TEMP 98
[2024-03-25 08:30] LABS: BASOPHILS # (AUTO) 0.03 K/uL (0.00-0.20); BASOPHILS % (AUTO) 0.8 % (0.0-5.0); EOSINOPHILS # (AUTO) 0.03 K/uL (0.00-0.70); EOSINOPHILS % (AUTO) 0.8 % (0.0-8.0); HEMATOCRIT 45.6 % (42-54); IMMATURE GRANULOCYTE ABSOLUTE 0.01 K/uL (0-1); LYMPHOCYTES # (AUTO) 1.4 K/uL (1.0-4.8); LYMPHOCYTES % (AUTO) 37.3 % (21.0-51.0); MEAN CORPUSCULAR HEMOGLOBIN 30.3 pg (27.0-33.0); MEAN CORPUSCULAR HGB CONC 34.6 g/dL (32.0-36.0); MEAN CORPUSCULAR VOLUME 87.5 fL (79-99); MONOCYTES # (AUTO) 0.3 K/uL (0.1-1.0); MONOCYTES % (AUTO) 8.7 % (3.0-13.0); NEUTROPHILS # (AUTO) 1.9 K/uL (1.8-7.7); NEUTROPHILS % (AUTO) 52.1 % (40.0-77.0); PLATELET COUNT (AUTO) 261 K/uL (130-400); RED BLOOD CELL COUNT(AUTO) 5.21 MIL/uL (4.50-6.20); RED CELL DISTRIBUTION WIDTH 13.3 % (11.0-15.5); WHITE BLOOD COUNT (AUTO) 3.7 K/uL (4.8-10.8)
[2024-03-25 08:43] LABS: POTASSIUM 3.1 mmol/L (3.5-5.1)
[2024-03-25 08:50] LABS: AMPHET/METH SCREEN,URINE POSITIVE (NEGATIVE); BARBITURATE SCREEN, URINE NEGATIVE (NEGATIVE); BENZODIAZEPINES SCREEN,URINE NEGATIVE (NEGATIVE); CANNABINOID SCREEN,URINE NEGATIVE (NEGATIVE); COCAINE SCREEN,URINE NEGATIVE (NEGATIVE); OPIATE SCREEN,URINE NEGATIVE (NEGATIVE); PHENCYCLIDINE SCREEN,URINE NEGATIVE (NEGATIVE)
[2024-03-25 09:03] LABS: SARS-CoV-2, RNA, NAAT NEGATIVE SARS CoV-2 (NEGATIVE)
[2024-03-25 09:07] LABS: INFLUENZA TYPE A Negative For Type A (NEGATIVE); INFLUENZA TYPE B Negative For Type B (NEGATIVE)
[2024-03-25 09:12] LABS: APPEARANCE,URINE CLEAR (CLEAR); BILIRUBIN,URINE NEGATIVE (NEGATIVE); COLOR,URINE YELLOW (YELLOW); GLUCOSE, URINE (UA) 50 mg/dL (NEGATIVE); KETONES,URINE NEGATIVE (NEGATIVE); LEUKOCYTE ESTERASE ,URINE NEGATIVE Leu/uL (NEGATIVE); NITRATE,URINE NEGATIVE (NEGATIVE); OCCULT BLOOD,URINE SMALL (NEGATIVE); PROTEIN,URINE 20 mg/dL (NEGATIVE); UROBILINOGEN,URINE 0.2 mg/dL (0.2-1.0)
[2024-03-25 09:28] LABS: ADD UA MICROSCOPIC YES
[2024-03-25 09:37] LABS: MUCUS,URINE RARE LPF (None Seen); WBC,URINE 0-1 /HPF (0-1)
== END 2024-03-25 08:45 | disposition left against medical advice (07) ==
LOC: EDH 07:57 → EEVIPCON 07:57 → EDH 08:45
DX: R55 Syncope and collapse (principal); Z20.822 Contact with and (suspected) exposure to COVID-19; Z79.899 Other long term (current) drug therapy; Z91.018 Allergy to other foods; Z98.890 Other specified postprocedural states
CPT/HCPCS: 36415; 71045; 80048; 80305; 81001; 84484; 85025; 85378; 87635; 87804; 93005

== ENCOUNTER 2025-02-20 22:13 | Emergency (ER) | payer SELFPAY ==
[~2025-02-20] VITALS: Ht 162.6 cm; Wt 63.5 kg
--- NOTE | 2025-02-20 22:18 | NUR ---
UA CUP PROVIDED
--- NOTE | 2025-02-20 23:31 | HMCIMG ---
EXAM: CR Abdomen, 1 view CLINICAL HISTORY: Difficult bowel movements. Left lower quadrant pain. COMPARISON: None provided. FINDINGS: Nonobstructed nonspecific bowel gas pattern. A component of moderate constipation is present in the colon. No free air is evident. No abnormal calcification. No aggressive appearing osseous lesion. IMPRESSION: No acute process. A component of moderate constipation is present in the colon. /[place]
[2025-02-21 00:14] LABS: APPEARANCE,URINE CLOUDY (CLEAR); GLUCOSE, URINE (UA) NEGATIVE (NEGATIVE); LEUKOCYTE ESTERASE ,URINE NEGATIVE Leu/uL (NEGATIVE); NITRATE,URINE NEGATIVE (NEGATIVE); OCCULT BLOOD,URINE NEGATIVE (NEGATIVE)
[2025-02-21 00:16] LABS: ADD UA MICROSCOPIC YES
[2025-02-21 00:22] LABS: CREATININE 0.9 mg/dL (0.5-1.3); GLOMERULAR FILTR. RATE CALC 122.0 mL/min (>90); GLUCOSE,RANDOM 121.0 mg/dL (70-105); SODIUM SERUM 139.0 mmol/L (136-145); UREA NITROGEN, BLOOD 16.0 mg/dL (7-18)
[2025-02-21 00:27] LABS: ASPARTATE AMINOTRANSFERASE 9.0 U/L (10-37); TOTAL PROTEIN, SERUM 7.0 g/dL (6.0-8.3)
[2025-02-21 00:35] LABS: IMMATURE GRANULOCYTE ABSOLUTE 0.01 K/uL (0-1); NUCLEATED RED BLOOD CELLS 0.0 % (0.0-0.19); PLATELET COUNT (AUTO) 223 K/uL (130-400); RED BLOOD CELL COUNT(AUTO) 5.04 MIL/uL (4.50-6.20); RED CELL DISTRIBUTION WIDTH 13.4 % (11.0-15.5); WHITE BLOOD COUNT (AUTO) 5.4 K/uL (4.8-10.8)
[2025-02-21] MEDS ORDERED: LACT-441 PO (00:47)
--- NOTE | 2025-02-21 00:47 | ERN ---
ED Note History of Present Illness Stated Complaint: LEFT LOWER QUADRANT PAIN Chief Complaint: Abdominal Pain Time Seen by MD: 22:16 Time Seen by Midlevel: 22:16 Dictation: The patient is a 24-year-old male with no significant past medical history who presents to the emergency department with complaints of left lower quadrant pain associated with constipation for the last three days. Patient denies any fevers, denies any vomiting. Allergies: Coded Allergies: banana (Unverified Allergy, Unknown, 04/19/19) Home Meds Active Scripts Amoxicillin (Amoxicillin) 500 Mg Tablet, 500 MG PO TID for 10 Days, #30 TAB 0 Refills Prov:PRABHA SMITH Joseph [employer] 06/09/23 Past Medical History Past Medical History: Other Additional Past Medical Hx: PTSD Surgical History: Other Surgical History Other: NECK BIOPSY RN Note Reviewed/Agreed w/PFSH: Yes Review of System Dictation Constitutional: Negative for fever,chills, and weight loss Eyes: Negative for injury, pain,redness, and discharge ENT: Negative for injury,pain or swelling Cardiovascular: Negative for chest pain, palpitations, and edema Respiratory: Negative for shortness of breath, cough, and wheezing, Abdomen/GI: Negative for nausea, vomiting, diarrhea,Positive for abdominal pain, constipation Back: Negative for injury and pain : Negative for injury, bleeding and discharge MS/Extremity: Negative for injury and deformity Skin: Negative for rash, and discoloration Neuro: Negative for headache, weakness, numbness, tingling, and seizure Psych: Negative for suicide ideation, homicidal ideation, and hallucinations Initial Vital Sign VS Vital Signs Date Time Temp Pulse Resp B/P (MAP) Pulse Ox O2 Delivery O2 Flow Rate FiO2 02/20/25 22:14 97.5 77 16 139/63 99 Room Air Physical Exam Dictation Vital Signs reviewed General Appearance: Alert, oriented x 3, no acute distress, well developed, nourished. Head and Face: non-traumatic. Eyes: PERRL, pink conjunctivas, eyelid no trauma, anterior chamber with arcus senilis. Ears: Pinnas intact and no signs of trauma or erythema ear canals clear and no discharge TM no erythema Nose: No discharge, no bleeding. Oropharynx: Mouth normal, tongue pink. pharynx clear,no erythema, tonsils no exudates, no abscesses noted, mucous membrane moist Neck: Supple, non-tender, no thyromegaly, no masses, no JVD, no bruits Breast:Deferred Chest:No tenderness, no crepitus, no paradoxical movement, no retractions Lungs:Clear, well-ventilated, symmetric, no rales, no wheezing, no rhonchi, no stridor, good breath sounds bilaterally Heart: Regular rate, regular rhythm, no murmur, no gallops Vascular: no peripheral edema, Abdomen: Soft, positive bowel sounds, nondistended, no guarding, left lower quadrant pain, no rebound, no masses no hepatomegaly, no splenomegaly, no Deluca's sign, no hernias. Rectal: Deferred Genital: Deferred Neurological: Normal speech, motor function intact, sensory function intact Musculoskeletal: Neck nontender, full range of motion, back nontender, full range of motion, Extremities: nontender, full range of motion Skin: Color pink, dry, no turgor, no rash, no lacerations, no abrasions, no contusions. Lymphatic: Deferred Results (Laboratory/Radiology) Laboratory/Radiology Laboratory Tests Test 02/20/25 00:00 02/20/25 23:53 White Blood Count 5.4 K/uL (4.8-10.8) Red Blood Count 5.04 MIL/uL (4.50-6.20) Hemoglobin 14.8 g/dL (14.0-18.0) Hematocrit 43.3 % (42-54) Mean Corpuscular Volume 85.9 fL (79-99) Mean Corpuscular Hemoglobin 29.4 pg (27.0-33.0) Mean Corpuscular Hemoglobin Concent 34.2 g/dL (32.0-36.0) Red Cell Distribution Width 13.4 % (11.0-15.5) Platelet Count 223 K/uL (130-400) Mean Platelet Volume 11.4 fL (7.5-10.5) H Immature Granulocyte % (Auto) 0.2 % (0-1) Neutrophils (%) (Auto) 51.0 % (40.0-77.0) Lymphocytes (%) (Auto) 38.4 % (21.0-51.0) Monocytes (%) (Auto) 7.8 % (3.0-13.0) Eosinophils (%) (Auto) 2.2 % (0.0-8.0) Basophils (%) (Auto) 0.4 % (0.0-5.0) Neutrophils # (Auto) 2.8 K/uL (1.8-7.7) Lymphocytes # (Auto) 2.1 K/uL (1.0-4.8) Monocytes # (Auto) 0.4 K/uL (0.1-1.0) Eosinophils # (Auto) 0.12 K/uL (0.00-0.70) Basophils # (Auto) 0.02 K/uL (0.00-0.20) Absolute Immature Granulocyte (auto 0.01 K/uL (0-1) Nucleated Red Blood Cells 0.0 % (0.0-0.19) Sodium Level 139 mmol/L (136-145) Potassium Level 3.6 mmol/L (3.5-5.1) Chloride Level 105 mmol/L (101-111) Carbon Dioxide Level 25 mmol/L (21-32) Blood Urea Nitrogen 16 mg/dL (7-18) Creatinine 0.9 mg/dL (0.5-1.3) Glomerular Filtration Rate Calc 122 mL/min (>90) Random Glucose 121 mg/dL (70-105) H Total Calcium 8.7 mg/dL (8.5-10.1) Total Bilirubin 0.1 mg/dL (0.2-1.0) L Aspartate Amino Transf (AST/SGOT) 9 U/L (10-37) L Alanine Aminotransferase (ALT/SGPT) 25 U/L (12-78) Alkaline Phosphatase 88 U/L (50-136) Total Protein 7.0 g/dL (6.0-8.3) Albumin 3.7 g/dL (3.5-5.0) Urine Color LIGHT-YELLOW (YELLOW) Urine Appearance CLOUDY (CLEAR) H Urine pH 7.5 (5.0-8.0) Urine Specific [place] 1.022 (1.001-1.031) Urine Protein NEGATIVE mg/dL (NEGATIVE) Urine Glucose (UA) NEGATIVE mg/dL (NEGATIVE) Urine Ketones NEGATIVE mg/dL (NEGATIVE) Urine Occult Blood NEGATIVE (NEGATIVE) Urine Nitrate NEGATIVE (NEGATIVE) Urine Bilirubin NEGATIVE mg/dL (NEGATIVE) Urine Urobilinogen 0.2 mg/dL (0.2-1.0) Urine Leukocyte Esterase NEGATIVE Alondra/uL Urine RBC 0-1 /HPF (0-1) Urine WBC 0-1 /HPF (0-1) Urine Amorphous Crystals (Auto) MOD /LPF (None Seen) Urine Bacteria None /HPF (None Seen) REASON: DIFFICULT BM, ONSET ONE WEEK. LEFT LOWER QUADRANT PAIN ORDERING PHYSICIAN: ADRIAN ALVARADO MD PROCEDURE: ABD 1VW - ABD 1VW EXAM: CR Abdomen, 1 view CLINICAL HISTORY: Difficult bowel movements. Left lower quadrant pain. COMPARISON: None provided. FINDINGS: Nonobstructed nonspecific bowel gas pattern. A component of moderate constipation is present in the colon. No free air is evident. No abnormal calcification. No aggressive appearing osseous lesion. IMPRESSION: No acute process. A component of moderate constipation is present in the colon. /[facility] Labs Reviewed?: Yes ED Course ED Course Orders Procedure Category Date Status Time Cbc With Differential LAB 02/20/25 Complete 22:15 Comprehensive LAB 02/20/25 Complete Metabolic Panel 22:15 Urinalysis Profile LAB 02/20/25 Complete 22:15 Abd 1vw RAD 02/20/25 Resulted 22:15 Vital Signs Date Time Temp Pulse Resp B/P (MAP) Pulse Ox O2 Delivery O2 Flow Rate FiO2 02/20/25 22:14 97.5 77 16 139/63 99 Room Air Medical Decision Making MDM The patient is a 24-year-old male with no significant past medical history who presents to the emergency department with complaints of left lower quadrant pain associated with constipation for the last three days. Patient denies any fevers, denies any vomiting. CBC showed no leukocytosis, no anemia, chemistry showed no electrolyte imbalance, normal kidney function, negative liver enzymes. X-ray showed m oderate constipation. On physical exam patient is in no acute distress, nontoxic appearance. Patient will be discharge to follow up with PCP. Differential diagnosis: Constipation, dehydration, electrolyte imbalance Need for hospitalization: Patient does not meet criteria for hospitalization. There are no social concerns with this patient. DX & DISP Disposition: Discharge Departure Impression: Primary Impression: Constipation Condition: Stable Scripts Lactulose (Lactulose) 10 Gram/15 Ml Solution 30 ML PO BID for constipation, #500 ML 0 Refills Prov: MARIBEL ATKINS [employer] 02/21/25 Additional Instructions: Your labs were unremarkable. Your x-ray showed constipation. Please increase your fluid intake at home. Increase foods high in fibers like fruits. Take your medications as prescribed. FOLLOW-UP WITH PRIMARY CARE PROVIDER IN 1 TO 2 DAYS. TAKE MEDICATIONS DIRECTED HERE IN THE EMERGENCY ROOM. OKAY TO CONTINUE HOME MEDICATIONS UNLESS OTHERWISE DISCUSSED DURING YOUR VISIT IN THE EMERGENCY ROOM TODAY. RETURN TO YOUR NEAREST EMERGENCY ROOM IF SYMPTOMS WORSEN OR IF THERE IS NO IMPROVEMENT. CALL 911 IF YOU NEED IMMEDIATE ASSISTANCE. TAKE TYLENOL [id number] NEEDED AND IF NO CONTRAINDICATIONS ARE PRESENT. INCREASE ORAL HYDRATION. A WOUND CULTURE OR URINE CULTURE WAS ORDERED HERE IN THE EMERGENCY ROOM DEPARTMENT PLEASE FOLLOW-UP WITH PRIMARY CARE PROVIDER AND ADVISE THEM TO GET REPEAT PORTS FROM OUR FACILITY. IF YOU HAD ANY TUYET WRAP/SPLINTS THAT WERE APPLIED HERE, PLEA SE DO NOT REMOVE THEM UNTIL YOU SEE YOUR PRIMARY CARE OR SPECIALTY. Referrals: SELF,REFERRAL (PCP) Time of Disposition: 00:46 I have reviewed the case, and I agree with, Diagnosis and Plan MARIBEL ATKINS [employer] Feb 21, 2025 00:47
[2025-02-21] MEDS: LACTULOSE 20 GM/30 ML UDCUP PO ONE (00:51)
[2025-02-21 00:53] VITALS: BP 134/76; PULSE 88; RESP 20; TEMP 98.1; O2SAT 100
== END 2025-02-21 01:11 | disposition home or self-care (01) ==
LOC: EDH 22:13
DX: K59.00 Constipation, unspecified (principal); Z91.018 Allergy to other foods; Z98.890 Other specified postprocedural states
CPT/HCPCS: 36415; 74018; 80053; 81001; 85025; 99283; 99284